=== PATIENT | female | born 1975 | race Caucasian/White ===

== ENCOUNTER 2020-05-03 11:42 | Emergency (ER) | payer OTHER, SELFPAY ==
[2020-05-03] VITALS (13 sets, daily range): BP systolic 110–137; BP diastolic 44–78; PULSE 66–111; RESP 17–19; TEMP 36.6–36.8; O2SAT 96–100; BMI 40.3
--- NOTE | 2020-05-03 11:49 | HMH.EDGENADL ---
ED Disposition Clinical Impression: Colitis Disposition: Home, Self-Care Condition on Discharge: Good Instructions: DI for Acute Abdominal Pain Referrals: Jojo Moore [Primary Care Provider] - 3 days Time of Disposition: 14:21 - Critical Care Critical Care Time: No Attestation: On , the high probability of a clinically significant, sudden or life threatening deterioration of the following system(s) required my full and direct attention, intervention and personal management. The time I documented below is in addition to time spent performing reported procedures but includes the following listed in this critical care notation. Medical Decision Making - Medical Records Medical records reviewed: Yes: I reviewed the patient's medical records. - Will Inquiry Pt receiving controlled substance: No Vital Signs: 05/03/20 11:44 05/03/20 11:48 05/03/20 11:53 Temperature 97.9 F Temperature Source Oral Pulse Rate 111 H 89 Pulse Rate [Left Radial] 96 H Respiratory Rate 19 Blood Pressure 137/73 Blood Pressure [Right Arm] 137/73 Blood Pressure Mean 94 Blood Pressure Mean [Right Arm] 94 Blood Pressure Source [Right Arm] Automatic Cuff Blood Pressure Position [Right Arm] Sitting 02 Sat by Pulse Oximetry 96 97 98 Oxygen Delivery Method Room Air 05/03/20 11:59 05/03/20 12:00 05/03/20 12:01 Temperature Temperature Source Pulse Rate 79 83 Pulse Rate [Left Radial] Respiratory Rate Blood Pressure 128/70 Blood Pressure [Right Arm] Blood Pressure Mean 100 Blood Pressure Mean [Right Arm] Blood Pressure Source [Right Arm] Blood Pressure Position [Right Arm] 02 Sat by Pulse Oximetry 100 100 Oxygen Delivery Method 05/03/20 12:15 05/03/20 12:29 05/03/20 12:30 Temperature Temperature Source Pulse Rate 71 73 Pulse Rate [Left Radial] Respiratory Rate Blood Pressure 120/74 Blood Pressure [Right Arm] Blood Pressure Mean 89 Blood Pressure Mean [Right Arm] Blood Pressure Source [Right Arm] Blood Pressure Position [Right Arm] 02 Sat by Pulse Oximetry 98 97 Oxygen Delivery Method 05/03/20 12:31 05/03/20 12:45 Temperature Temperature Source Pulse Rate 70 66 Pulse Rate [Left Radial] Respiratory Rate Blood Pressure Blood Pressure [Right Arm] Blood Pressure Mean Blood Pressure Mean [Right Arm] Blood Pressure Source [Right Arm] Blood Pressure Position [Right Arm] 02 Sat by Pulse Oximetry 100 99 Oxygen Delivery Method - Lab Data Lab results reviewed: Yes: I reviewed the patient's lab results. Lab Results 05/03/20 11:49: Urine Color Yellow, Urine Appearance Clear, Urine pH 6.0, Ur Specific [place] 1.025, Urine Protein Negative, Urine Glucose (UA) Negative, Urine Ketones Negative, Urine Blood Negative, Urine Nitrate Negative, Urine Bilirubin Negative, Urine Urobilinogen 0.2, Ur Leukocyte Esterase Negative, Urine RBC None, Urine WBC None, Ur Squamous Epith Cells Occasional, Urine Bacteria Trace 05/03/20 11:49: Urine HCG, Qual Negative 05/03/20 12:00: WBC 9.9, RBC 4.95, Hgb 14.4, Hct 41.8, MCV 84.4, MCH 29.0, MCHC 34.4, RDW 14.0, Plt Count 228, MPV 8.4, Neut % (Auto) 70.1, Lymph % (Auto) 23.0, [place] % (Auto) 4.1, Eos % (Auto) 2.3, Baso % (Auto) 0.5, Neut # (Auto) 6.9, Lymph # (Auto) 2.3, [place] # (Auto) 0.4, Eos # (Auto) 0.2, Baso # (Auto) 0.1 05/03/20 12:00: Sodium 139, Potassium 3.6, Chloride 102, Carbon Dioxide 27, Anion Gap 13.6, BUN 16, Creatinine 0.90, Estimated Creat Clear 150, Estimated GFR 68, Est GFR ( Amer) 82, Glucose 123 H, Calcium 9.9, Total Bilirubin 1.0, AST 38 H, ALT 47, Alkaline Phosphatase 83, Total Protein 8.8 H, Albumin 4.9, Globulin 3.9 H, Albumin/Globulin Ratio 1.3, Lipase 168 05/03/20 12:00: Troponin I < 0.01 Result diagrams: 05/03/20 12:00 05/03/20 12:00 Orders (Tests/Meds): ED MEDICATIONS Discontinued Medications Generic Name Dose Route Start Last Admin Trade Na
--- NOTE | 2020-05-03 11:53 | ECG_ITS ---
APPROVED REPORT Exam: Resting ECG HR:85 bpm ECG Measurements Heart Rate 85 AXES [place] 162 P 28 QRSd 86 QRS -4 QT 396 T 60 QTc 471 Conclusion Normal sinus rhythm Late R wave progression Abnormal ECG Electronically signed by : Nathan Machado, 05/03/2020 17:55:57
[2020-05-03 12:05] LABS: Microscopic, Urine URINE MICROSCOPIC (MICROSCOPIC)
[2020-05-03 12:07] LABS: Appearance,Urine CLEAR (Clear); Bilirubin,Urine Negative (Negative); Blood, Urine Negative (Negative); Color,Urine YELLOW (Yellow); Glucose,Urine (UA) Negative (Negative); Ketones,Urine Negative (Negative); Leukocyte Esterase,Urine Negative (Negative); Nitrate,Urine Negative (Negative); Protein,Urine Negative (Negative); Specific Gravity, Urine 1.025 (1.005-1.030); Urobilinogen,Urine 0.2 EU/dl (0.2)
[2020-05-03 12:10] LABS: Urine Pregnancy, HCG Qual. Negative (Negative)
[2020-05-03 12:13] LABS: Basophils # 0.1 K/mm3 (0-0.2); Basophils % 0.5 % (0.1-2.0); Eosinophils # 0.2 K/mm3 (0.0-0.4); Eosinophils % 2.3 % (0.1-12.0); Hematocrit 41.8 % (37.0-47.0); Hemoglobin 14.4 g/dL (12.2-16.2); Lymphocytes # 2.3 K/mm3 (0.7-4.5); Mean Corpuscular HGB Conc 34.4 g/dL (31.8-35.4); Mean Corpuscular Volume 84.4 fl (81-99); Mean Platelet Volume 8.4 fl (7.4-10.4); Monocytes # 0.4 K/mm3 (0.1-1.0); Monocytes % 4.1 % (1.7-9.3); Neutrophils # 6.9 K/mm3 (1.8-7.8); Neutrophils % 70.1 % (37.0-80.0); Platelet Count 228 K/mm3 (142-424); Red Blood Count 4.95 M/mm3 (4.20-5.40); White Blood Count 9.9 K/mm3 (4.8-10.8)
[2020-05-03 12:16] LABS: Chloride 102 mmol/L (98-107); Sodium 139 mmol/L (136-145)
[2020-05-03 12:17] LABS: Bacteria,Urine Trace /lpf; Squamous Epithelial Cell,Urine Occasional #/hpf (0-5)
[2020-05-03 12:17] LABS: Potassium 3.6 mmoL/L (3.5-5.1)
[2020-05-03 12:19] LABS: Alanine Aminotransferase 47 U/L (12-78); Alkaline Phosphatase 83 U/L (38-126); Anion Gap 13.6 mEq/L (5-15); Aspartate Amino Transferase 38 U/L (14-36); Blood Urea Nitrogen 16 mg/dl (7-17); Calcium 9.9 mg/dl (8.4-10.2); Carbon Dioxide 27 mmol/L (22.0-30.0); Creatinine Clearance Estimated 150 mL/min (50-200); Estimated Glomerular Filt Rate 68 ml/min (>60); GFR (African American) 82 ML/MIN (>60); Glucose 123 mg/dl (74-100); Lipase 168 U/L (23-300)
[2020-05-03 12:20] LABS: Albumin Level 4.9 g/dl (3.5-5.0); Albumin/Globulin Ratio 1.3 (1.1-1.8); Globulin 3.9 g/dL (1.3-3.2); Total Protein,Serum 8.8 g/dl (6.3-8.2)
--- NOTE | 2020-05-03 12:32 | CT_ITS ---
PROCEDURE: CT ABDOMEN PELVIS W CON CLINICAL INDICATION: pain, BRBPR, pain, bright red blood per rectum COMPARISON: No exams were available for comparison TECHNIQUE: IV Contrast: 75ML Isovue 370 Oral Contrast None Axial images obtained with sagittal and coronal reformats. All CT scans at the facility use one or more dose reduction, viz: automated exposure control, ma/kV adjustment per patient size (including targeted exams where dose is matched to indication, i.e. head), or iterative reconstruction technique. FINDINGS: LOWER THORAX: No acute finding ABDOMEN & PELVIS: There is mild diffuse hepatic steatosis. No focal liver lesion is identified. The gallbladder, spleen, adrenal glands, and pancreas have an unremarkable appearance. No renal or ureteral calculi. There is mild prominence of the left renal pelvis versus parapelvic renal cyst. No evidence of appendicitis. No intestinal obstruction or free air. Post hysterectomy changes. There is mild thickening of the colon throughout with the exception of the mid transverse colon. No evidence of diverticulitis. There is sclerosis of the SI joints on both sides. There is a small umbilical hernia containing fat IMPRESSION: 1. Mildly thickened colon which could be due to nondistention or colitis. 2. No evidence of diverticulitis intestinal obstruction free air or appendicitis. Dictated by: Flynn Pimentel MD 05/03/2020 13:29 Flynn Pimentel MD in [place] 05/03/2020 13:29
[2020-05-03 12:34] LABS: Troponin I < 0.01 ng/ml (0.00-0.034)
--- NOTE | 2020-05-03 12:58 | XR_ITS ---
PROCEDURE: XR CHEST PORTABLE CLINICAL HISTORY: cp Chest pain COMPARISON: CR CXR CHEST(2 VIEWS-NOT PORTABLE) from 03/03/2013 FINDINGS: The cardiomediastinal silhouette and pulmonary vascularity are within normal limits. Left hemidiaphragm is slightly elevated with minimal left basilar atelectasis. Nodular opacity noted in the left perihilar region may be due to overlapping vessel. No acute bony abnormalities. IMPRESSION: Slightly elevated left hemidiaphragm with mild left basilar atelectasis Dictated by: Flynn Pimentel MD 05/03/2020 13:21 Flynn Pimentel MD in [facility] 05/03/2020 13:21
--- NOTE | 2020-05-03 13:15 | PC.NURSE ---
Patient back from CT at this time.
[2020-05-03 13:26] LABS: Adenovirus,PCR Not Detected (NotDetected); Bordetella Pertussis Not Detected (NotDetected); Chlamydophila Pneumoniae, PCR Not Detected (NotDetected); Coronavirus 19, PCR Not Detected (NotDetected); Coronavirus 229E Not Detected (NotDetected); Coronavirus NL63 Not Detected (NotDetected); Coronavirus OC43 Not Detected (NotDetected); Coronovirus HKU1,PCR Not Detected (NotDetected); Human Metapneumovirus Not Detected (NotDetected); Influenza A, PCR Not Detected (NotDetected); Influenza AH1, 2009 Not Detected (NotDetected); Influenza AH1, PCR Not Detected (NotDetected); Influenza AH3,PCR Not Detected (NotDetected); Influenza B, PCR Not Detected (NotDetected); Mycoplasma Pneumoniae, PCR Not Detected (NotDetected); Parainfluenza 1, PCR Not Detected (NotDetected); Parainfluenza 2, PCR Not Detected (NotDetected); Parainfluenza 3, PCR Not Detected (NotDetected); Parainfluenza 4, PCR Not Detected (NotDetected); Respiratory Syncytial Virus Not Detected (NotDetected); Rhinovirus/Enterovirus Not Detected (NotDetected)
== END 2020-05-03 14:28 | disposition home or self-care (01) ==
PROVIDERS: Emergency Provider Family Medicine; PCP Physician Assistant
DX: Z20.822 Contact with and (suspected) exposure to COVID-19 (principal); K52.9 Noninfective gastroenteritis and colitis, unspecified; I10 Essential (primary) hypertension; K21.9 Gastro-esophageal reflux disease without esophagitis; Z79.899 Other long term (current) drug therapy
CPT/HCPCS: 71045; 74177; 80053; 81001; 81025; 83690; 84484; 85025; 87581; 87633; 87798; 93005; 96365; 99283; Q9967

== ENCOUNTER → 2020-05-22 08:22 | Outpatient (POV) | payer OTHER, SELFPAY | PROVIDERS: Visit Provider Nurse Practitioner Family | DX: Z00.00 Encounter for general adult medical examination without abnormal findings (principal) ==

== ENCOUNTER → 2020-05-26 12:56 | Outpatient (CLI) | payer OTHER, SELFPAY ==
[2020-05-29 17:42] LABS: Deamidated Gliadin Abs, IgA 7 units (0-19); Deamidated Gliadin Abs, IgG 2 units (0-19); Tissue Transglutaminase IgA Ab <2 U/mL (0-3); Tissue Transglutaminase IgG Ab <2 U/mL (0-5)
[2020-05-30 03:42] LABS: Endomysial IgA Antibody Negative (Negative)
[2020-05-30 16:25] LABS: Saccharomyces cerevisiae, IgA <20.0 Units (0.0-24.9); Saccharomyces cerevisiae, IgG <20.0 Units (0.0-24.9)
[2020-05-31 22:24] LABS: Reticulin IgA Antibody Negative titer (Neg:<1:2.5)
== END ==
PROVIDERS: Visit Provider Nurse Practitioner Family
DX: R19.4 Change in bowel habit (principal); K52.9 Noninfective gastroenteritis and colitis, unspecified; K59.00 Constipation, unspecified; R19.7 Diarrhea, unspecified; R14.0 Abdominal distension (gaseous); K21.9 Gastro-esophageal reflux disease without esophagitis
CPT/HCPCS: 36415; 83516; 86255; 86256; 86671

== ENCOUNTER → 2020-07-26 14:48 | Outpatient (CLI) | payer OTHER, SELFPAY | PROVIDERS: Visit Provider Internal Medicine Gastroenterology | DX: Z01.812 Encounter for preprocedural laboratory examination (principal); Z20.822 Contact with and (suspected) exposure to COVID-19; Z13.810 Encounter for screening for upper gastrointestinal disorder | CPT/HCPCS: U0003 ==

== ENCOUNTER 2020-07-28 08:26 | Day surgery (SDC) | payer OTHER, SELFPAY ==
[2020-07-24 15:04] VITALS: BMI 38.0
[2020-07-28] VITALS (7 sets, daily range): BP systolic 74–132; BP diastolic 43–75; PULSE 57–96; RESP 18; TEMP 36.1–36.3; O2SAT 95–99
--- NOTE | 2020-07-28 09:31 | HMH.ANESCL ---
[facility] Anesthesia Checklist - Structural Data Admitted From: Home Planned Operative Procedure/s: colonoscopy Consent for Planned Operative Procedure(s) Verified: Yes - Airway Assessment C-Spine Mobility Assessed: Yes TMJ Mobility Assessed: Yes Dentition: Good Dentition - Neurological Assessment Level of Consciousness: Awake, Alert, Appropriate - Anesthesia Plan Anesthesia Risk discussed: Yes Anesthesia Plan: Verified ASA Class: II Anesthesia Type: MAC [facility] History I have reviewed the patient's past medical history: Yes Medical History: Reports:: Gastroesophageal Reflux Disease(GERD), Hypertension Denies:: Cancer, Diabetes Mellitus Type 1, Diabetes Mellitus Type 2, Internal Pacemaker, MRSA, Seizures *Have you ever received a pneumonia vaccine?: No *Have you received a flu vaccine this season?: No Anesthesia experience/problems:: none Other Surgeries: Yes: Hysterectomy-Total. No: Pacemaker Amputation: No Fractures: No - *Social History Last grade of school completed: Some college Smoking Status: Never smoker Alcohol Intake: current Alcohol Intake Frequency:: holidays/special occasions only Substance Use Type: denies use *Occupational Status:: employed Housing: house Household Members: spouse *Travel in the last 8 weeks: None Family Hx:: Cancer (Colorectal)
--- NOTE | 2020-07-28 09:50 | HMH.PROC ---
[facility] Procedure Note Procedure Note:: Colonoscopy Procedure Report: Colonoscopy Endoscopist: Ulsyses Ferguson II, MD Referring physician: Jojo Moore PA-C Date of Procedure: July 28, 2020 Equipment: Olympus 190 variable stiffness pediatric colonoscope Sedation: MAC sedation Indication: Mrs. Valles is a 45-year-old female with a recent episode of of chest pain with palpitations. She also had bloating, nausea and chills. She eventually had diarrhea with rectal bleeding and clots. She went to the emergency department and had a CAT scan that showed nondistention versus colitis. The patient had normal white blood cell count. She was given a prednisone pack and had improvement of her symptoms. She was still having moderate bloating, belching and gassiness with bowel irregularity. The patient did see Jena PATTERSON and had additional lab work showing negative celiac and IBD serologies. The patient does state that her mother was diagnosed with colon cancer in her 50s. The patient has had routine colonoscopies and her last colonoscopy in June 2018 (Dr. Patricia Ayala M.D.) was normal. The patient has had improvement of her digestive symptoms since starting the recommended diet. Procedure: Prior to the procedure, a history and physical exam was performed, and patient's medications and allergies were reviewed. The risks, benefits and alternatives of the sedation and procedure were discussed with the patient. All questions were answered and informed consent was obtained. The patient was brought to the procedure room. Patient identification and proposed procedure were verified by the physician and the nurse. The patient was placed in a left lateral decubitus position and the scope was passed under direct vision. Throughout the procedure, the patient's blood pressure, pulse, and oxygen saturations were monitored continuously. The colonoscopy was accomplished without difficulty. The patient tolerated the procedure well. Findings: On digital rectal examination there was normal rectal tone. There were no external hemorrhoids. The colonoscope was introduced through the anal canal to the rectum and advanced to the cecum. The ileocecal valve and appendiceal orifice were identified. The scope was advanced a short distance into the ileum which appeared grossly normal. The scope was then withdrawn into the colon. The cecum, ascending, transverse, descending, sigmoid and rectum were grossly normal. There were no mucosal abnormalities identified. Upon retroflexion within the rectum there were grade 1-2 internal hemorrhoids.The preparation was fair throughout with [place] Preparation Score of 7 out of 9. The cecal time was 12 minutes. Impression: 1. Normal colonoscopy with intubation of the terminal ileum 2. Grade 1-2 internal hemorrhoids Plan: The patient does have longstanding functional bowel disease/IBS. I suspect that she had self-limited colitis and probable ischemic colitis. I would recommend continued dietary measures and fiber regimen. Based upon her family history, I would recommend repeat surveillance colonoscopy again in 5 years.
== END 2020-07-28 10:50 | disposition home or self-care (01) ==
LOC: OUTP 08:28
PROVIDERS: PCP Physician Assistant; Visit Provider Internal Medicine Gastroenterology
PROC: 0DJD8ZZ Inspection of Lower Intestinal Tract, Via Natural or Artificial Opening Endoscopic (ICD-10-PCS; CPT 45378; principal; 2020-07-28 09:30)
DX: K64.0 First degree hemorrhoids (principal); R19.7 Diarrhea, unspecified; K62.5 Hemorrhage of anus and rectum; K21.9 Gastro-esophageal reflux disease without esophagitis; I10 Essential (primary) hypertension; Z80.0 Family history of malignant neoplasm of digestive organs
CPT/HCPCS: 45378

== ENCOUNTER → 2021-07-26 10:55 | Outpatient (CLI) | payer SELFPAY ==
[2021-07-26 14:29] LABS: Chloride 102 mmol/L (98-107); Potassium 3.7 mmoL/L (3.5-5.1); Sodium 137 mmol/L (136-145)
[2021-07-26 14:31] LABS: Alanine Aminotransferase 24 U/L (12-78); Aspartate Amino Transferase 29 U/L (14-36); Blood Urea Nitrogen 10 mg/dl (7-17); Estimated Glomerular Filt Rate 77 ml/min (>60); GFR (African American) 93 ML/MIN (>60)
[2021-07-26 14:32] LABS: Albumin Level 4.2 g/dl (3.5-5.0); Albumin/Globulin Ratio 1.4 (1.1-1.8); Alkaline Phosphatase 79 U/L (38-126); Anion Gap 12.7 mEq/L (5-15); Bilirubin,Total 0.8 mg/dl (0.2-1.3); Calcium 9.3 mg/dl (8.4-10.2); Carbon Dioxide 26 mmol/L (22.0-30.0); Chol/HDL Ratio 5.2 (1-3.5); Cholesterol 181 mg/dl (140-200); Globulin 2.9 g/dL (1.3-3.2); Glucose 117 mg/dl (74-100); HDL Cholesterol 35 mg/dl (40-60); Total Protein,Serum 7.1 g/dl (6.3-8.2); Triglycerides 114 mg/dl (30-150); VLDL Cholesterol 23 mg/dL (0-40)
[2021-07-26 14:34] LABS: Basophils # 0.1 K/mm3 (0-0.2); Basophils % 1.1 % (0.1-2.0); Eosinophils # 0.2 K/mm3 (0.0-0.4); Hematocrit 34.6 % (37.0-47.0); Hemoglobin 11.3 g/dL (12.2-16.2); Lymphocytes % 29.1 % (10-50); Mean Corpuscular HGB Conc 32.8 g/dL (31.8-35.4); Mean Corpuscular Hemoglobin 24.7 pg (27.0-31.2); Mean Corpuscular Volume 75.2 fl (81-99); Mean Platelet Volume 9.3 fl (7.4-10.4); Monocytes # 0.3 K/mm3 (0.1-1.0); Monocytes % 4.8 % (1.7-9.3); Neutrophils # 4.3 K/mm3 (1.8-7.8); Platelet Count 264 K/mm3 (142-424); Red Cell Distribution Width 16.2 % (11.5-17.5)
[2021-07-26 14:43] LABS: Direct LDL Cholesterol 114.42 mg/dL (100-129)
[2021-07-26 15:03] LABS: Thyroid Stimulating Hormone 1.52 uIU/mL (0.465-4.68)
== END ==
LOC: LAB.CARL 10:56
PROVIDERS: Visit Provider Nurse Practitioner Family
DX: I10 Essential (primary) hypertension (principal); Z13.220 Encounter for screening for lipoid disorders; Z13.29 Encounter for screening for other suspected endocrine disorder; Z83.3 Family history of diabetes mellitus
CPT/HCPCS: 36415; 80053; 80061; 83036; 84443; 85025

== ENCOUNTER 2021-08-26 14:34 | Emergency (ER) | payer SELFPAY ==
[2021-08-26] VITALS (8 sets, daily range): BP systolic 108–134; BP diastolic 69–97; PULSE 63–85; RESP 16–21; TEMP 36.7–36.8; O2SAT 96–99; BMI 38.7
--- NOTE | 2021-08-26 14:54 | ECG_ITS ---
APPROVED REPORT Exam: Resting ECG HR:73 bpm ECG Measurements Heart Rate 73 AXES WI 151 P 38 QRSd 92 QRS 13 QT 427 T 22 QTc 452 Conclusion SINUS RHYTHM LOW QRS VOLTAGE IN PRECORDIAL LEADS [QRS DEFLECTION < 1.0 mV IN CHEST LEADS] BORDERLINE ECG UNCONFIRMED REPORT Electronically signed by : Nathan Machado MD 08/27/2021 13:59:55
--- NOTE | 2021-08-26 15:14 | XR_ITS ---
PROCEDURE INFORMATION: Exam: XR Chest Exam date and time: 08/26/2021 3:23 PM Age: 46 years old Clinical indication: Patient HX: Patient has had shortness of breath for a week. She gets dizzy when she stands up occasionally. Non-smoker, no chest surgeries. ; Additional info: SOA TECHNIQUE: Imaging protocol: Radiologic exam of the chest. Views: 2 views. COMPARISON: CR XR CHEST PORTABLE 05/03/2020 1:09 PM FINDINGS: Airway: Patent Lungs: Unremarkable. No consolidation. Pleural spaces: Unremarkable. No pleural effusion. No pneumothorax. Heart/Mediastinum: Unremarkable. No cardiomegaly. Bones/joints: No acute skeletal abnormality or aggressive osseous lesion. IMPRESSION: No acute findings.
[2021-08-26 15:25] LABS: Basophils # 0.1 K/mm3 (0-0.2); Eosinophils # 0.2 K/mm3 (0.0-0.4); Eosinophils % 2.6 % (0.1-12.0); Hematocrit 36.6 % (37.0-47.0); Hemoglobin 11.4 g/dL (12.2-16.2); Lymphocytes # 2.3 K/mm3 (0.7-4.5); Lymphocytes % 33.7 % (10-50); Mean Corpuscular Hemoglobin 23.6 pg (27.0-31.2); Mean Corpuscular Volume 76.1 fl (81-99); Mean Platelet Volume 8.8 fl (7.4-10.4); Monocytes # 0.4 K/mm3 (0.1-1.0); Monocytes % 6.1 % (1.7-9.3); Neutrophils # 3.9 K/mm3 (1.8-7.8); Neutrophils % 56.7 % (37.0-80.0); Platelet Count 203 K/mm3 (142-424); Red Blood Count 4.81 M/mm3 (4.20-5.40); White Blood Count 6.9 K/mm3 (4.8-10.8)
--- NOTE | 2021-08-26 15:43 | HMH.EDGENADL ---
ED Disposition Clinical Impression: Syncope and collapse Fatigue Qualifiers: Fatigue type: unspecified Qualified Code(s): R53.83 - Other fatigue Disposition: Home, Self-Care Condition on Discharge: Good Instructions: DI for Syncope in Adults (Fainting) Additional Instructions: Follow-up with your primary care provider, call tomorrow to make appointment. Return to the emergency department if fainting recurs or chest pain, shortness of breath or other symptoms of concern. Referrals: Tereza Keene APRN [Primary Care Provider] - - Critical Care Critical Care Time: No Attestation: On 08/26/21, the high probability of a clinically significant, sudden or life threatening deterioration of the following system(s) required my full and direct attention, intervention and personal management. The time I documented below is in addition to time spent performing reported procedures but includes the following listed in this critical care notation. Medical Decision Making - Will Inquiry Pt receiving controlled substance: No Vital Signs: 08/26/21 14:35 08/26/21 15:41 08/26/21 16:00 Temperature 98.1 F Temperature Source Oral Pulse Rate 72 63 Pulse Rate [Left Radial] 77 Pulse Rate [Orthostatic Standing Right Radial] Pulse Rate [Right Radial] Pulse Rate [Right] Respiratory Rate 18 18 21 Blood Pressure 122/97 H 113/79 Blood Pressure [Orthostatic Lying Right Arm] Blood Pressure [Orthostatic Sitting Right Arm] Blood Pressure [Orthostatic Standing Right Arm] Blood Pressure [Right Arm] 134/69 Blood Pressure Mean 104 90 Blood Pressure Mean [Right Arm] 90 Blood Pressure Source Blood Pressure Source [Right Arm] Automatic Cuff Blood Pressure Position Blood Pressure Position [Right Arm] Sitting 02 Sat by Pulse Oximetry 99 96 98 Oxygen Delivery Method Room Air 08/26/21 16:03 08/26/21 16:04 08/26/21 16:09 Temperature Temperature Source Pulse Rate 65 72 Pulse Rate [Left Radial] Pulse Rate [Orthostatic Standing Right Radial] 85 Pulse Rate [Right Radial] 74 Pulse Rate [Right] 66 Respiratory Rate 19 Blood Pressure 110/69 113/79 Blood Pressure [Orthostatic Lying Right Arm] 110/69 Blood Pressure [Orthostatic Sitting Right Arm] 113/79 Blood Pressure [Orthostatic Standing Right Arm] 122/78 Blood Pressure [Right Arm] Blood Pressure Mean 82 92 Blood Pressure Mean [Right Arm] Blood Pressure Source Blood Pressure Source [Right Arm] Blood Pressure Position Blood Pressure Position [Right Arm] 02 Sat by Pulse Oximetry 99 98 Oxygen Delivery Method 08/26/21 16:30 08/26/21 17:10 Temperature 98.2 F Temperature Source Oral Pulse Rate 66 77 Pulse Rate [Left Radial] Pulse Rate [Orthostatic Standing Right Radial] Pulse Rate [Right Radial] Pulse Rate [Right] Respiratory Rate 16 Blood Pressure 108/72 L 122/80 Blood Pressure [Orthostatic Lying Right Arm] Blood Pressure [Orthostatic Sitting Right Arm] Blood Pressure [Orthostatic Standing Right Arm] Blood Pressure [Right Arm] Blood Pressure Mean 88 Blood Pressure Mean [Right Arm] Blood Pressure Source Automatic Cuff Blood Pressure Source [Right Arm] Blood Pressure Position Sitting Blood Pressure Position [Right Arm] 02 Sat by Pulse Oximetry 99 Oxygen Delivery Method Room Air - Lab Data Lab Results 08/26/21 14:55: WBC 6.9, RBC 4.81, Hgb 11.4 L, Hct 36.6 L, MCV 76.1 L, MCH 23.6 L, MCHC 31.0 L, RDW 17.0, Plt Count 203, MPV 8.8, Neut % (Auto) 56.7, Lymph % (Auto) 33.7, [place] % (Auto) 6.1, Eos % (Auto) 2.6, Baso % (Auto) 1.0, Neut # (Auto) 3.9, Lymph # (Auto) 2.3, [place] # (Auto) 0.4, Eos # (Auto) 0.2, Baso # (Auto) 0.1 08/26/21 14:55: Sodium 138, Potassium 3.3 L, Chloride 101, Carbon Dioxide 32 H, Anion Gap 8.3, BUN 12, Creatinine 0.80, Estimated Creat Clear 160, Estimated GFR 77, Est GFR ( Amer) 93, Glucose 100, Calcium 8.9, Total Bilirubin 0.3, AST 26, ALT 21, A
[2021-08-26 15:45] LABS: Alanine Aminotransferase 21 U/L (12-78); Albumin/Globulin Ratio 1.2 (1.1-1.8); Alkaline Phosphatase 76 U/L (38-126); Anion Gap 8.3 mEq/L (5-15); Aspartate Amino Transferase 26 U/L (14-36); Bilirubin,Total 0.3 mg/dl (0.2-1.3); Blood Urea Nitrogen 12 mg/dl (7-17); Calcium 8.9 mg/dl (8.4-10.2); Carbon Dioxide 32 mmol/L (22.0-30.0); Chloride 101 mmol/L (98-107); Creatinine Clearance Estimated 160 mL/min (50-200); Estimated Glomerular Filt Rate 77 ml/min (>60); GFR (African American) 93 ML/MIN (>60); Globulin 3.3 g/dL (1.3-3.2); Glucose 100 mg/dl (74-100); Potassium 3.3 mmoL/L (3.5-5.1); Sodium 138 mmol/L (136-145); Total Protein,Serum 7.3 g/dl (6.3-8.2)
[2021-08-26 15:57] LABS: Troponin I < 0.01 ng/ml (0.00-0.034)
[2021-08-26 16:27] LABS: Free Thyroxine Index 3.2 ug/dL (5.93-13.13); T4 (Thyroxine) 9.9 ug/dl (5.53-11.0); Triiodothryronine (T3) Uptake 32 % (23.5-40.5)
[2021-08-26 16:41] LABS: Thyroid Stimulating Hormone 2.93 uIU/mL (0.465-4.68)
--- NOTE | 2021-08-26 16:57 | PC.NURSE ---
Rounded on pt at this time. Updated her and on POC. No new needs, pt resting in bed.
== END 2021-08-26 17:12 | disposition home or self-care (01) ==
PROVIDERS: Emergency Provider Emergency Medicine; PCP Nurse Practitioner Family
DX: R55 Syncope and collapse (principal); R53.83 Other fatigue; Z79.899 Other long term (current) drug therapy; I10 Essential (primary) hypertension; K21.9 Gastro-esophageal reflux disease without esophagitis
CPT/HCPCS: 71046; 80053; 84436; 84443; 84479; 84484; 85025; 93005; 99283